=== PATIENT | female | born 1945 | race Caucasian/White ===

== ENCOUNTER 2017-07-06 08:53 | Emergency (ER) | payer MEDICARE, MEDICAID ==
--- NOTE | 2017-07-06 09:19 | Emergency Department Record ---
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 Patient was moving neck freely without pain on my exam and she says she has right sided head pain no visible lumps. fall from standing position. patient complaining of right shoulder and right hip pain. and right elbow pain and right leg pain. She normally wears a brace on the right ankle for foot drop.( from her CVA MD Complaint: Fall - Related Data Home Medications Medication Instructions Recorded Confirmed Last Taken Albuterol Sulfate [Ventolin Hfa] 1 - 2 puff IH .EVERY 4-6 HOURS PRN 07/06/1707/06/17 Alendronate Sodium [Fosamax] 70 mg PO DAILY 07/06/17 07/06/17 07/06/17 Allergies Allergy/AdvReac Type Severity Reaction Status Date / Time aspirin Allergy HIVES Verified 07/06/17 10:13 ibuprofen [From Motrin] Allergy HIVES Verified 07/06/17 10:13 iodine Allergy HIVES Verified 07/06/17 10:13 naproxen sodium Allergy HIVES Verified 07/06/17 10:13 [From Anaprox] NSAIDS (Non-Steroidal Allergy HIVES Verified 07/06/17 10:13 Anti-Inflamma Penicillins Allergy HIVES Verified 07/06/17 10:13 Sulfa (Sulfonamide Allergy HIVES Verified 07/06/17 10:13 Antibiotics) Review of Systems Reviewed: No additional complaints except as noted below Constitutional: Reports: As per HPI. Denies: Chills, Fever, Malaise, Night sweats, Weakness, Weight change Eyes: Reports: As per HPI. Denies: Eye discharge, Eye pain, Photophobia, Vision change ENT: Reports: As per HPI. Denies: Congestion, Dental pain, Ear pain, Epistaxis , Hearing loss, Throat pain Respiratory: Reports: As per HPI. Denies: Cough, Dyspnea, Hemoptysis, Stridor, Wheezes Cardiovascular: Reports: As per HPI. Denies: Arrhythmia, Chest pain, Dyspnea on exertion, Edema, Murmurs, Orthopnea, Palpitations, Paroxysmal nocturnal dyspnea, Rheumatic Fever, Syncope Endocrine: Reports: As per HPI. Denies: Fatigue, Heat or cold intolerance, Polydipsia, Polyuria Gastrointestinal: Reports: As per HPI. Denies: Abdominal pain, Constipation, Diarrhea, Hematemesis, Hematochezia, Melena, Nausea, Vomiting Genitourinary: Reports: As per HPI. Denies: Abnormal menses, Discharge, Dyspareunia, Dysuria, Frequency, Hematuria, Incontinence, Retention, Urgency Musculoskeletal: Reports: As per HPI, Arthralgia, Joint swelling. Denies: Back pain, Gout, Myalgia, Neck pain Skin: Reports: As per HPI. Denies: Bruising, Change in color, Change in hair/ nails, Lesions, Pruritus, Rash Neurological: Reports: As per HPI, Headache. Denies: Abnormal gait, Confusion, Numbness, Paresthesias, Seizure, Tingling, Tremors, Vertigo, Weakness Psychiatric: Reports: As per HPI. Denies: Anxiety, Auditory hallucinations, Depression, Homicidal thoughts, Suicidal thoughts, Visual hallucinations Hematological/Lymphatic: Reports: As per HPI. Denies: Anemia, Blood Clots, Easy bleeding, Easy bruising, Swollen glands Past Medical History - SOCIAL HISTORY Smoking Status: Never smoker Drug Use: None - RESPIRATORY Hx Respiratory Disorders: Yes Hx Asthma: Yes - CARDIOVASCULAR Hx Cardio Disorders: Yes Hx Hypertension: Yes - NEURO Hx Neuro Disorders: Yes Hx CVA: Yes - GI Hx GI Disorders: No - Hx Genitourinary Disorders: No - ENDOCRINE Hx Endocrine Disorders: No - MUSCULOSKELETAL Hx Musculoskeletal Disorders: No - PSYCH Hx Psych Problems: Yes Hx Depression: Yes - HEMATOLOGY/ONCOLOGY Hx Hematology/Oncology Disorders: No Family Medical History Family Hx Comment (NOT TO BE USED IN PLACE OF ITEMS BELOW): unsure Physical Exam - General General Appearance: Alert, Oriented x3, Cooperative, No acute distress - Head Head exam: Normal inspection - Eye Eye exam: Normal appearance, PERRL Pupils: Normal accommodation - ENT ENT exam: Normal exam, Mucous membranes moist, Normal external ear exam, Normal orophraynx, TM's normal bilaterally Ear exam: Normal external inspection. negative: External canal tenderness Nasal Exam: Normal inspection. negative: Discharge, Sinus tenderness Mouth exam: Normal external inspection, Tongue normal Teeth exam: Normal inspection. negative: Dental caries Throat exam: Normal inspection. negative: Tonsillar erythema, Tonsillar exudate - Neck Neck exam: Normal inspection, Full ROM. negative: Tenderness - Respiratory Respiratory exam: Normal lung sounds bilaterally. negative: Respiratory distress - Cardiovascular Cardiovascular Exam: Regular rate, Normal rhythm, Normal heart sounds - GI/Abdominal GI/Abdominal exam: Soft, Normal bowel sounds. negative: Tenderness - Rectal Rectal exam: Deferred - exam: Deferred - Extremities Extremities exam: Normal capillary refill, Tenderness (pain in right shoulder , right hip and right knee and right lower leg .) - Back Back exam: Reports: Normal inspection, Full ROM. Denies: Muscle spasm, Rash noted, Tenderness - Neurological Neurological exam: Alert, Normal gait, Oriented X3, Reflexes normal - Psychiatric Psychiatric exam: Normal affect, Normal mood - Skin Skin exam: Dry, Intact, Normal color, Warm Course - Reevaluation(s) Reevaluation #1: NPO starting now 07/06/17 11:48 Reevaluation #2: discussed case with Dr. Dejesus and will transfer to [facility] 07/06/17 12:17 Medical Decision Making - Data Complexity MDM Data: Labs Ordered and/or Reviewed, X-Ray Ordered and/or Reviewed (clavicle fracture, right hip intertrochanteric hip fracture comminuted) - Lab Data Result diagrams: 07/06/17 09:10 07/06/17 09:10 Disposition Clinical Impression: Fall Qualifiers: Encounter type: initial encounter Qualified Code(s): W19.XXXA - Unspecified fall, initial encounter Closed right hip fracture Qualifiers: Encounter type: initial encounter Qualified Code(s): S72.001A - Fracture of unspecified part of neck of right femur, initial encounter for closed fracture Fracture, clavicle closed, shaft Qualifiers: Encounter type: initial encounter Fracture alignment: nondisplaced Laterality: right Qualified Code(s): S42.024A - Nondisplaced fracture of shaft of right clavicle, initial encounter for closed fracture Disposition: Acute Care Hospital Transfer Condition: (2) Stable Forms: Patient Portal Access Time of Disposition: 12:17 Quality - Quality Measures Quality Measures: N/A - Blood Pressure Screening Does Patient Have Any of the Following: No Systolic Measurement: ~ Screening for High Blood Pressure: Patient Exclusion, Hx of HTN [G3281]
[2017-07-06 09:22] LABS: BASO % 0.3 % (0-6); EOS % 0.7 % (0-6); GRAN % 74.5 % (47-80); HEMATOCRIT 35.5 % (35.0-47.0); HEMOGLOBIN 12.1 gm/dl (11.6-16.0); MEAN CORPUSCULAR HEMOGLOBIN 30.3 pg (27-33); MEAN CORPUSCULAR HGB CONC 34.1 g/dl (32-36); MEAN PLATELET VOLUME 11.6 fl (7.4-10.4); MONO % 8.5 % (0-9); PLATELET COUNT 151 K/uL (130-400); RED BLOOD COUNT 3.99 M/uL (3.80-5.40); RED CELL DISTRIBUTION WIDTH 13.6 % (11.5-14.5); WHITE BLOOD COUNT W/O DIFF 7.6 K/uL (4.2-12.2)
[2017-07-06 09:29] LABS: PARTIAL THROMBOPLASTIN TIME 29.3 SECONDS (24.5-39.1); PROTHROMBIN TIME (PATIENT) 10.8 SECONDS (9.5-12.1)
[2017-07-06 09:33] LABS: BLOOD UREA NITROGEN 13 mg/dL (8-23); CREATININE 0.5 mg/dL (0.5-0.9); EST GLOMERULAR FILTRATION RATE > 60 mL/min; GLUCOSE,RANDOM 138 mg/dL (74-109)
[2017-07-06] MEDS ORDERED: 0.9 % SODIUM CHLORIDE 1000ML 1,000 ML IV ONE (12:14)
[2017-07-06] MEDS ORDERED: MORPHINE SULFATE 5 MG/ML PFS IVP ONE (12:46)
[2017-07-06 12:51] LABS: URINE APPEARANCE CLEAR; URINE BILIRUBIN NEGATIVE (NEGATIVE); URINE BLOOD NEGATIVE (NEGATIVE); URINE COLOR YELLOW; URINE GLUCOSE (UA) NEGATIVE (NEGATIVE); URINE KETONE NEGATIVE (NEGATIVE); URINE LEUKOCYTE ESTERASE NEGATIVE (NEGATIVE); URINE NITRITE NEGATIVE (NEGATIVE); URINE PROTEIN NEGATIVE (NEGATIVE); URINE UROBILINOGEN 0.2 E.U./dL (0.20 - 1.00)
--- NOTE | 2017-07-07 10:46 | RADIOLOGY REPORT ---
EXAM: ELBOW, RIGHT 2 VIEWS HISTORY: FALL. RIGHT ELBOW INJURY AND PAIN. TECHNIQUE: Three-view, right elbow. COMPARISON: None. FINDINGS: Compromised study due to suboptimal positioning due to contracture joints as well as osteopenia. No obvious acute fracture identified. IMPRESSION: ALLOWING FOR SUBOPTIMAL POSITIONING, NEGATIVE FOR ACUTE FRACTURE OF THE RIGHT ELBOW. JOB NUMBER: [id number] MTDD
--- NOTE | 2017-07-07 10:48 | RADIOLOGY REPORT ---
EXAM: KNEE, RIGHT 1 or 2 VIEWS HISTORY: FALL. RIGHT KNEE PAIN. RIGHT KNEE INJURY. TECHNIQUE: Two-view, right knee. COMPARISON: None. ENCOUNTER: Initial. FINDINGS: Osteopenia. No acute fracture. Mild degenerative change of the patellofemoral compartment. IMPRESSION: 1. NEGATIVE FOR ACUTE FRACTURE OF THE RIGHT KNEE. 2. OSTEOPENIA. 3. MILD DEGENERATIVE CHANGE OF THE PATELLOFEMORAL COMPARTMENT. JOB NUMBER: [id number] MTDD
--- NOTE | 2017-07-07 10:50 | RADIOLOGY REPORT ---
EXAM: LOWER LEG, RIGHT HISTORY: FALL. RIGHT LEG INJURY WITH PAIN. TECHNIQUE: Two-view, right calf. COMPARISON: None. ENCOUNTER: Initial. FINDINGS: Osteopenia. Cutaneous calcification involving the entire distal right calf. No obvious acute fracture. IMPRESSION: 1. NEGATIVE FOR ACUTE FRACTURE OF THE RIGHT TIBIA OR FIBULA. 2. PROBABLE DYSTROPHIC CALCIFICATION, DISTAL RIGHT CALF. JOB NUMBER: [id number] MTDD
--- NOTE | 2017-07-07 10:52 | RADIOLOGY REPORT ---
EXAM: SHOULDER, RIGHT HISTORY: FALL. RIGHT SHOULDER INJURY AND PAIN. TECHNIQUE: Three-view, right shoulder. COMPARISON: Chest x-ray same day. ENCOUNTER: Initial. FINDINGS: Osteopenia. Acute nondisplaced fracture distal third right clavicle. AC joint is intact. Glenohumeral joint is intact. No additional acute fractures. Multiple healed fractures posterior right ribs. IMPRESSION: OSTEOPENIA. ACUTE NONDISPLACED FRACTURE DISTAL THIRD RIGHT CLAVICLE. JOB NUMBER: [id number] MTDD
--- NOTE | 2017-07-07 10:57 | RADIOLOGY REPORT ---
EXAM: HIP,UNILAT, 2-3 VIEW RIGHT HISTORY: FALL, RIGHT HIP PAIN. TECHNIQUE: Three-view, right hip. COMPARISON: None. ENCOUNTER: Initial. FINDINGS: Osteopenia. Sacrum appears intact. Acute comminuted, displaced intertrochanteric fracture of the proximal right femur. The right femoral neck is rotated laterally. IMPRESSION: COMMINUTED, DISPLACED INTERTROCHANTERIC FRACTURE OF THE PROXIMAL RIGHT FEMUR. JOB NUMBER: [id number] MTDD
--- NOTE | 2017-07-07 11:04 | CT SCAN REPORT ---
DATE: 07/06/2017 at 0932. EXAM: HEAD CT WITHOUT CONTRAST. HISTORY: Fall. No loss of consciousness. Prior cerebrovascular accident with right hemiparesis. COMPARISON: Head CT dated 08/16/2016. HAND DOMINANCE: Left. ENCOUNTER: Initial. TECHNIQUE: Contiguous axial images from the cerebral convexity to the foramen magnum were obtained without contrast. FINDINGS: There is again demonstration of an extensive encephalomalacia involving a large portion of the left MCA territory, unchanged. No acute intracranial hemorrhage, mass effect, or midline shift. Mild decreased attenuation in the periventricular white matter of the right cerebral hemisphere. Persistent ex vacuo dilatation of the left lateral ventricle. Basal cisterns are preserved. Extensive opacification of the maxillary sinuses with hyperdense material. Bilateral lens implants. Opacification of the frontal sinuses. Ethmoid air cells in the right sphenoid sinus. IMPRESSION: 1. NO ACUTE INTRACRANIAL PROCESS WITH NO INTERVAL CHANGE. 2. A LARGE, REMOTE INFARCT INVOLVING THE LEFT MCA TERRITORY. THERE IS EX VACUO DILATATION OF THE LEFT LATERAL VENTRICLE WELL WALLERIAN DEGENERATION OF THE LEFT CEREBRAL PEDUNCLE, UNCHANGED. 3. TREJO SINUS DISEASE. HYPERDENSE MATERIAL IN THE MAXILLARY SINUSES COULD RELATE TO INSPISSATED MUCUS OR FUNGAL INFECTION. JOB NUMBER: [id number] MTDD
--- NOTE | 2017-07-07 11:29 | CT SCAN REPORT ---
DATE: 07/06/2017 at 0932. EXAM: CERVICAL SPINE CT WITH TWO-DIMENSIONAL REFORMATS. HISTORY: Fall. No loss of consciousness. Neck pain. COMPARISON: None. TECHNIQUE: Contiguous axial images from the skull base to the T2 level were obtained without contrast. Sagittal and coronal two-dimensional reformatted images were obtained for better anatomic delineation. ENCOUNTER: Initial. FINDINGS: There is jon sinus disease as mentioned on the head CT. Incomplete fusion of the posterior ring of C1 which is a normal variant. The C2 vertebral body is intact, and the odontoid process is intact. No acute fracture or subluxation of the cervical spine. There is moderate to severe degenerative disc disease from C4-5 to C6-7 manifested by loss of stature as well as endplate osteophytes. Borderline central canal stenosis at these levels. Moderate neuroforaminal stenosis bilaterally at C4-5 and C5-6. There is an acute, nondisplaced fracture of the distal right clavicle; although the acromioclavicular joint appears intact. IMPRESSION: 1. NO ACUTE FRACTURE OR SUBLUXATION OF THE CERVICAL SPINE. 2. MULTILEVEL DEGENERATIVE CHANGE OF THE CERVICAL SPINE WITH BORDERLINE CENTRAL CANAL STENOSIS AT C4-5 AND C5-6. MODERATE NEUROFORAMINAL STENOSIS AT THESE LEVELS. 3. ACUTE, NONDISPLACED FRACTURE OF THE DISTAL RIGHT CLAVICLE. JOB NUMBER: [id number] MTDD
--- NOTE | 2017-07-07 11:34 | RADIOLOGY REPORT ---
DATE: 07/06/2017 at 0940. EXAM: PA VIEW OF THE CHEST. HISTORY: Fall. Pain from the right shoulder to the ankle. COMPARISON: Chest x-ray dated 08/16/2016. ENCOUNTER: Initial. TECHNIQUE: A PA view of the chest was obtained. FINDINGS: Right chest port present. The lungs are clear. Cardiac silhouette and diaphragm are unremarkable. Osteopenia with compromised detail. Acute, nondisplaced fracture, distal third right clavicle. Healed right rib fractures with no acutely displaced right rib fractures identified. There are three consecutive wedge deformities in the lower thoracic spine which appear similar to the previous study. IMPRESSION: 1. ACUTE, NONDISPLACED FRACTURE, DISTAL THIRD RIGHT CLAVICLE. 2. THE LUNGS ARE CLEAR. JOB NUMBER: [id number] MTDD
== END 2017-07-06 13:35 | disposition short-term general hospital (02) ==
LOC: ER 08:53
DX: S42.034A Nondisplaced fracture of lateral end of right clavicle, initial encounter for closed fracture (principal); S72.141A Displaced intertrochanteric fracture of right femur, initial encounter for closed fracture; M25.561 Pain in right knee; M25.521 Pain in right elbow; M79.661 Pain in right lower leg; R51 Headache; I48.91 Unspecified atrial fibrillation; I69.351 Hemiplegia and hemiparesis following cerebral infarction affecting right dominant side; I10 Essential (primary) hypertension; W19.XXXA Unspecified fall, initial encounter; Y92.121 Bathroom in nursing home as the place of occurrence of the external cause
CPT/HCPCS: 99285 ×2; 96374; 85025; 85730; 85610; 80048; 81003; 71010; 73070; 73560; 73030; 73590; 73502; 72125; 70450; 93005; 93010; J2270

== ENCOUNTER 2019-12-09 09:07 | Emergency (ER) | payer MEDICARE, MEDICAID ==
--- NOTE | 2019-12-09 09:44 | Emergency Department Record ---
History of Present Illness - General Chief Complaint: Cough Stated Complaint: COUGH Time Seen by Provider: 12/09/19 09:29 Source: Family Mode of Arrival: Wheelchair Limitations: No limitations - History of Present Illness Initial Comments: The patient is here due to a cough and congestion for 4-5 days. She has had some wheezing which does respond to albuterol neb tx's. There is no hx of fever, chills, CP, or sputum production. MD Complaint: Cough, Nasal congestion, Rhinorrhea Onset/Timin -: Days(s) - Related Data Previous Rx's Medication Instructions Recorded Albuterol Sulfate 0.083% [Neb] 3 ml NEB .EVERY 4-6 HOURS PRN #1 ml 12/09/19 [Albuterol Sulfate] Doxycycline Monohydrate [Mondoxyne 100 mg PO BID 10 Days #19 capsule 12/09/19 Nl] Allergies Allergy/AdvReac Type Severity Reaction Status Date / Time aspirin Allergy HIVES Verified 12/09/19 09:28 ibuprofen [From Motrin] Allergy HIVES Verified 12/09/19 09:28 iodine Allergy HIVES Verified 12/09/19 09:28 naproxen sodium Allergy HIVES Verified 12/09/19 09:28 [From Anaprox] NSAIDS (Non-Steroidal Allergy HIVES Verified 12/09/19 09:28 Anti-Inflamma Penicillins Allergy HIVES Verified 12/09/19 09:28 Sulfa (Sulfonamide Allergy HIVES Verified 12/09/19 09:28 Antibiotics) Travel/Exposure Screening - Travel/Exposure Within Last 30 Days Have you traveled within the last 30 days?: No - Travel/Exposure Within Last Year Have you traveled outside the [place] in the last year?: No - Additonal Travel/Exposure Details Have you been exposed to anyone with a communicable illness?: No - Travel Symptoms Symptom Screening: None Review of Systems Constitutional: Denies: Chills, Fever, Malaise Eyes: Denies: Eye discharge ENT: Reports: Congestion Respiratory: Reports: Cough. Denies: Dyspnea Past Medical History - SOCIAL HISTORY Smoking Status: Never smoker Alcohol Use: None Drug Use: None - RESPIRATORY Hx Respiratory Disorders: Yes Hx Asthma: Yes - CARDIOVASCULAR Hx Cardio Disorders: Yes Hx Hypertension: Yes - NEURO Hx Neuro Disorders: Yes Hx CVA: Yes - GI Hx GI Disorders: No - Hx Genitourinary Disorders: No - ENDOCRINE Hx Endocrine Disorders: No - MUSCULOSKELETAL Hx Musculoskeletal Disorders: No - PSYCH Hx Psych Problems: Yes Hx Depression: Yes - HEMATOLOGY/ONCOLOGY Hx Hematology/Oncology Disorders: No Family Medical History Any Significant Family History?: No Family Hx Comment (NOT TO BE USED IN PLACE OF ITEMS BELOW): unsure Physical Exam - General General Appearance: Alert, Cooperative, No acute distress - Head Head exam: Atraumatic, Normocephalic - Eye Eye exam: Normal appearance - ENT Throat exam: Normal inspection. negative: Tonsillar erythema, Tonsillar exudate - Neck Neck exam: Normal inspection, Full ROM. negative: Tenderness - Respiratory Respiratory exam: Normal lung sounds bilaterally. negative: Respiratory distress - Cardiovascular Cardiovascular Exam: Regular rate, Normal rhythm, Normal heart sounds - GI/Abdominal GI/Abdominal exam: Soft, Normal bowel sounds. negative: Tenderness - Extremities Extremities exam: Normal inspection, Full ROM, Normal capillary refill. negative: Tenderness - Neurological Neurological exam: Alert. negative: Motor sensory deficit Course Vital Signs 12/09/19 09:29 Temperature 97.5 F L Pulse Rate 68 Respiratory 20 Rate Blood Pressure 110/58 Pulse Ox 97 - Reevaluation(s) Reevaluation #1: I did discuss the xray report with the patient and caregiver. We will start the patient on Doxycycline and have her F/U with her PCP. She is to return for any worsening issues. 12/09/19 10:22 Medical Decision Making - Data Complexity MDM Data: X-Ray Ordered and/or Reviewed - Radiology Data Radiology results: Report reviewed (CXR: Possible bilateral lower lobe infiltrates.) Disposition Disposition: Discharge Clinical Impression: Pneumonia Qualifiers: Pneumonia type: due to unspecified organism Laterality: bilateral Lung location: unspecified part of lung Qualified Code(s): J18.9 - Pneumonia, unspecified organism Disposition: Home, Self-Care Condition: (2) Stable Instructions: Community Acquired Pneumonia (ED) Additional Instructions: Please continue the Neb tx's and Doxycycline. Please see your family doctor later this week or next week for recheck. Return to the ER for any worsening issues, any high fever, or shortness of breath. Prescriptions: Albuterol Sulfate 0.083% [Neb] [Albuterol Sulfate] 3 ml NEB .EVERY 4-6 HOURS PRN #1 ml PRN Reason: Difficulty In Breathing Doxycycline Monohydrate [Mondoxyne Nl] 100 mg PO BID 10 Days #19 capsule Forms: Patient Portal Access Time of Disposition: 10:24 Quality - Quality Measures Quality Measures: N/A - Blood Pressure Screening View Details: Yes Does Patient Have Any of the Following: No Blood Pressure Classification: Normal BP Reading Systolic Measurement: 110 Diastolic Measurement: 58 Screening for High Blood Pressure: < Normal BP, F/U Not Required > [G8783]
--- NOTE | 2019-12-09 10:09 | RADIOLOGY REPORT ---
EXAMINATION: Two View Chest Radiographs EXAM DATE: 12/09/2019 10:00 AM TECHNIQUE: Frontal and lateral views INDICATION: cough COMPARISON: 07/06/2017 ENCOUNTER: Not applicable FINDINGS: The heart, mediastinum, and pulmonary vasculature are normal. There is coarse interstitial lung kelin ngs with interval patchy infiltrate in the right midlung field and left lung base. There is interval blunting of the right costophrenic angle suggesting a small right pleural effusion and/or pleural thi ckening. No evidence of pneumothorax. Dual lumen right subclavian chest port noted with the catheter tip at the cavoatrial junction. Multiple thoracic and lumbar vertebral body compression fractures IMPRESSION: Evolving bilateral infiltrates as compared with 07/06/2017. New small right pleural effusion and/or pl eural thickening noted. Dictated by: Karel Gaytan MD on 12/09/2019 10:01 AM. .
[2019-12-09] MEDS ORDERED: DOXYCYCLINE HYCLATE 100 MG CAPSULE PO ONE (10:12)
== END 2019-12-09 10:39 | disposition home or self-care (01) ==
LOC: ER 09:07
DX: J18.9 Pneumonia, unspecified organism (principal); I10 Essential (primary) hypertension
CPT/HCPCS: 71046; 99283